=== PATIENT | male | born 1940 | race Caucasian/White ===

== ENCOUNTER 2016-07-04 09:43 | Observation (INO) | payer MEDICARE ==
[2016-07-04] MEDS ORDERED: Sodium Chloride 0.9% 1000 ML 1,000 ML IV STA (10:22)
--- NOTE | 2016-07-04 10:22 | ERPHSYRPT ---
- History of Present Illness Time Seen by Provider: 07/04/16 10:17 Source: patient, EMS Exam Limitations: other (dementia) Patient Subjective Stated Complaint: syncopal episode per skilled nursing Triage Nursing Assessment: per ems, pt was in shower and had a 2 min syncopal episode. on arrival, pt pleasant and oriented to year, confused to place and time. skin jaundice. cap refil >3 seconds with cyanoic kneecaps and elbows. oral membranes dry. machine buffer weak. lungs clear. abd flat, bs present. moist weak cough noted Physician History: The patient is a 75-year-old male with Alzheimer's who resides in a skilled nursing brought in by ambulance today after passing out in the shower and being unconscious for 2 minutes. Patient does not remember any of the incident. He is mildly confused. He states he doesn't know why he is in the skilled nursing except that the sports complex attendant ordered. He denies pain anywhere at this time. He has past medical history of pneumonia, COPD, sepsis, UTI, prostate problems, and Alzheimer's dementia. Witnessed: other (longterm nurse) Prior Episodes: single episode today Timing/Duration: sudden, improved Precipitating Factors: none Context: standing Loss of Consciousness: prolonged (minutes) (2) Charcter of event(s): collapsed, became unresponsive Allergies/Adverse Reactions: No Known Drug Allergies Allergy (Verified 07/04/16 10:04) Home Medications: Aspirin [Tammy Aspirin] 81 mg PO DAILY 04/16/13 [History] Acetaminophen 325 mg [Tylenol 325 mg] 650 mg PO Q4H PRN PRN 07/02/13 [ History] Albuterol 2.5 mg/3 ml Neb [Proventil 2.5 mg/3 ml Neb] 2.5 mg IH Q6H PRN PRN 07/02/13 [History] Finasteride 5 mg [Proscar 5 MG] 5 mg DAILY 12/04/15 [History] Loratadine 10 mg [Claritin 10 mg] 10 mg DAILY 12/04/15 [History] Memantine HCl/Donepezil HCl [Namzaric 28 mg-10 mg Capsule] 1 ea PO DAILY [History] Quetiapine Fumarate 25 mg [Seroquel 25 MG] 50 mg PO QHS 12/04/15 [History] Sennosides [Senna Laxative] 8.6 mg PO DAILY 12/04/15 [History] Tamsulosin HCl [Flomax] 0.4 mg PO DAILY 12/04/15 [History] Tramadol HCl 50 mg [Ultram 50 mg] 50 mg PO Q4HPRN PRN 12/04/15 [History] Hx Tetanus, Diphtheria Vaccination/Date Given: Yes Hx Influenza Vaccination/Date Given: (unknown) Hx Pneumococcal Vaccination/Date Given: (unknown) - Past Medical History Pertinent Past Medical History: Yes Neurological History: No Pertinent History, Alzheimer's Disease, Dementia, TIA ENT History: No Pertinent History, Other Cardiac History: Arrhythmia, High Cholesterol, Hypertension, Peripheral Vascular Disease, Other Respiratory History: COPD, Emphysema Endocrine Medical History: No Pertinent History Musculoskeletal History: No Pertinent History GI Medical History: No Pertinent History History: No Pertinent History Psycho-Social History: No Pertinent History Male Reproductive Disorders: No Pertinent History Other Medical History: POOR HISTORIAN FOR PAST MEDICAL HISTORY. HISTORY OF ANEURYSM, BRADYCARDIA, CRANIOTOMY WITH LEFT MCA/CAESAR - Past Surgical History Past Surgical History: Yes Neuro Surgical History: Other Cardiac: No Pertinent History Respiratory: No Pertinent History Gastrointestinal: No Pertinent History Genitourinary: No Pertinent History Musculoskeletal: No Pertinent History Male Surgical History: No Pertinent History Other Surgical History: Cerebral Aneurysm. DETACHED RETINAL REPAIR. CRANIOTOMY WITH LEFT MCA/CAESAR - Social History Smoking Status: Former smoker How long have you smoked: 50 Exposure to second hand smoke: No Drug Use: none Patient Lives Alone: No - Review of Systems Constitutional: No Fever, No Chills Eyes: Other (scleral icterus) Ears, Nose, & Throat: Other (dry mucous membranes) Respiratory: No Cough, No Dyspnea Cardiac: No Chest Pain, No Edema, No Syncope Abdominal/Gastrointestinal: No Abdominal Pain, No Nausea, No Vomiting, No Diarrhea Genitourinary Symptoms: No Dysuria Musculoskeletal: No Back Pain, No Neck Pain Skin: No Rash Neurological: Other (dementia) Psychological: Memory Loss Endocrine: No Symptoms Hematologic/Lymphatic: No Symptoms Immunological/Allergic: No Symptoms All Other Systems: Reviewed and Negative Physical Exam - Nursing Vital Signs Nursing Vital Signs: Initial Vital Signs Temperature 96.9 F Temperature Source Rectal Pulse Rate 70 Respiratory Rate 18 Blood Pressure 115/57 Pain Intensity 0 - Maggie Coma Scale Best Eye Response ([place]): (4) open spontaneously Best Verbal Response (Maggie): (5) oriented Best Motor Response (Maggie): (6) obeys commands Maggie Total: 15 - Physical Exam General Appearance: mild distress Eye Exam: bilateral eye: other (scleral icterus) Ears, Nose, Throat Exam: dry mucous membranes Neck Exam: normal inspection, non-tender, supple, full range of motion Respiratory: rhonchi Cardiovascular: regular rate/rhythm, capillary refill <2 sec, No murmur, No pulse deficit Gastrointestinal: soft, No tenderness, No distention, No mass Rectal Exam: not done Back Exam: normal inspection, normal range of motion, No CVA tenderness, No vertebral tenderness Extremity Exam: normal inspection, normal range of motion, pelvis stable, No tenderness Mental Status: alert, oriented x 3, 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 comp Chest CT 02/03/16. Right lung now clear.) Ordered Tests: Active Orders 24 hr Category Date Time Status Search Strategist STAT Care 07/04/16 10:22 Active Cath for Specimen-Straight STAT Care 07/04/16 10:22 Active EKG-ER Only STAT Care 07/04/16 10:22 Active IV Insertion STAT Care 07/04/16 10:22 Active Orthostatic Vital Signs STAT Care 07/04/16 10:22 Active Oxygen-ED Only NASAL CANNULA 2 lpm Care 07/04/16 10:22 Active CHEST 2 VIEWS (PA AND LAT) Stat Exams 07/04/16 10:23 Completed AMYLASE Stat Lab 07/04/16 10:00 Completed BLOOD CULTURE Stat Lab 07/04/16 10:34 Received CBC W DIFF Stat Lab 07/04/16 10:00 Completed CMP Stat Lab 07/04/16 10:00 Completed LIPASE Stat Lab 07/04/16 10:00 Completed Lactic Acid Stat Lab 07/04/16 10:37 Completed Occult Blood,Stool Other Stat Lab 07/04/16 10:58 Completed TROPONIN Stat Lab 07/04/16 10:00 Completed UA W/ MICROSCOPIC Stat Lab 07/04/16 10:30 Completed VENOUS BLOOD GAS Stat Lab 07/04/16 10:37 Completed Medication Summary Discontinued Medications Generic Name Dose Route Start Last Admin Trade Name Marbin PRN Reason Stop Dose Admin Sodium Chloride 1,000 mls @ 999 mls/hr 07/04/16 10:22 07/04/16 11:25 Sodium Chloride 0.9% 1000 Ml IV 07/04/16 11:22 999 mls/hr .Q1H1M STA Administration Sodium Chloride Confirm 07/04/16 11:08 Sodium Chloride 0.9% 1000 Ml Administered 07/04/16 11:09 Dose 1,000 mls @ ud .ROUTE .STK-MED ONE Lab/Rad Data: Laboratory Result Diagrams 07/04/16 10:00 07/04/16 10:00 Laboratory Results 07/04/16 07/04/16 07/04/16 Range/Units 10:58 10:37 10:30 WBC (4.0-10.5) K/mm3 RBC (4.1-5.6) M/mm3 Hgb (12.5-18.0) gm/dl Hct (42-50) % MCV (78-100) fl MCH (26-32) pg MCHC (32-36) g/dl RDW (11.5-14.0) % Plt Count (150-450) K/mm3 MPV (6-9.5) fl Gran % (36.0-66.0) % Lymphocytes % (24.0-44.0) % Monocytes % (0.0-12.0) % Eosinophils % (0.00-5.0) % Basophils % (0.0-0.4) % Basophils # (0-0.4) VBG pH 7.39 (7.32-7.42) VBG pCO2 at Pat Temp 47 (42-55) mm/Hg VBG pO2 at Pat Temp 21 L (25-40) mm/Hg VBG HCO3 28.5 H (22-28) meq/L VBG O2 Sat (Porfirio) 27.7 L (95-100) VBG Base Excess 3.2 H (-2.0-2.0) VBG Hemoglobin 6.6 L* VBG Carboxyhemoglobin 4.6 (0.0-6.9) % T HGB POC Potassium 4.0 (3.5-5.1) Sodium (136-145) mEq/L Potassium (3.5-5.1) mEq/L Chloride (98-107) mEq/L Carbon Dioxide (21-32) mEq/L Anion Gap (5-15) MEQ/L BUN (9-20) mg/dL Creatinine (0.55-1.30) mg/dl Estimated GFR ML/MIN Glucose (70-110) MG/DL Lactic Acid 2.4 H (0.4-2.0) Calcium (8.5-10.1) mg/dL Total Bilirubin (0.2-1.0) mg/dL AST (15-37) U/L ALT (12-78) U/L Alkaline Phosphatase (46-116) U/L Troponin I (0.000-0.056) ng/ml Serum Total Protein (6.4-8.2) gm/dL Albumin (3.4-5.0) g/dL Amylase (25-115) U/L Lipase (73-393) U/L Ur Collection Type VOID Urine Color [place] (YELLOW) Urine Appearance CLEAR (CLEAR) Urine pH 5.0 (5-6) Ur Specific [place] >=1.030 (1.005-1.025) Urine Protein 100 (Negative) Urine Glucose (UA) NEGATIVE (NEGATIVE) mg/dL Urine Ketones NEGATIVE (NEGATIVE) Urine Nitrite NEGATIVE (NEGATIVE) Urine Bilirubin SMALL (NEGATIVE) Urine Urobilinogen 0.2 (0-1) mg/dL Urine WBC (Auto) NEGATIVE (NEGATIVE) Urine RBC (Auto) TRACE-INTACT (0-5) James/ul Urine Microscopic RBC 2-5 (0-2) /HPF Urine Microscopic WBC 0-2 (0-5) /HPF Ur Epithelial Cells FEW (FEW) /HPF Urine Bacteria FEW (NEGATIVE) /HPF Urine Mucus MODERATE (NEGATIVE) /HPF Stool Occult Blood NEGATIVE (Negative) Slides for Path Review Specimen Received 07/04/16 1030 07/04/16 07/04/16 07/04/16 Range/Units 10:00 10:00 10:00 WBC 9.8 (4.0-10.5) K/mm3 RBC 1.99 L (4.1-5.6) M/mm3 Hgb 6.0 L* (12.5-18.0) gm/dl Hct 20.1 L (42-50) % MCV 101.0 H (78-100) fl MCH 30.1 (26-32) pg MCHC 29.9 L (32-36) g/dl RDW 25.0 H (11.5-14.0) % Plt Count 464 H (150-450) K/mm3 MPV 8.3 (6-9.5) fl Gran % 75.1 H (36.0-66.0) % Lymphocytes % 15.3 L (24.0-44.0) % Monocytes % 6.0 (0.0-12.0) % Eosinophils % 3.3 (0.00-5.0) % Basophils % 0.3 (0.0-0.4) % Basophils # 0.03 (0-0.4) VBG pH (7.32-7.42) VBG pCO2 at Pat Temp (42-55) mm/Hg VBG pO2 at Pat Temp (25-40) mm/Hg VBG HCO3 (22-28) meq/L VBG O2 Sat (Porfirio) (95-100) VBG Base Excess (-2.0-2.0) VBG Hemoglobin VBG Carboxyhemoglobin (0.0-6.9) % T HGB POC Potassium (3.5-5.1) Sodium 146 H (136-145) mEq/L Potassium 3.9 (3.5-5.1) mEq/L Chloride 110 H (98-107) mEq/L Carbon Dioxide 26.8 (21-32) mEq/L Anion Gap 13.3 (5-15) MEQ/L BUN 33 H (9-20) mg/dL Creatinine 1.46 H (0.55-1.30) mg/dl Estimated GFR 50 ML/MIN Glucose 127 H (70-110) MG/DL Lactic Acid (0.4-2.0) Calcium 8.9 (8.5-10.1) mg/dL Total Bilirubin 2.0 H (0.2-1.0) mg/dL AST 19 (15-37) U/L ALT 8 L (12-78) U/L Alkaline Phosphatase 55 (46-116) U/L Troponin I < 0.017 (0.000-0.056) ng/ml Serum Total Protein 8.0 (6.4-8.2) gm/dL Albumin 2.7 L (3.4-5.0) g/dL Amylase 29 (25-115) U/L Lipase 127 (73-393) U/L Ur Collection Type Urine Color (YELLOW) Urine Appearance (CLEAR) Urine pH (5-6) Ur Specific [place] (1.005-1.025) Urine Protein (Negative) Urine Glucose (UA) (NEGATIVE) mg/dL Urine Ketones (NEGATIVE) Urine Nitrite (NEGATIVE) Urine Bilirubin (NEGATIVE) Urine Urobilinogen (0-1) mg/dL Urine WBC (Auto) (NEGATIVE) Urine RBC (Auto) (0-5) James/ul Urine Microscopic RBC (0-2) /HPF Urine Microscopic WBC (0-5) /HPF Ur Epithelial Cells (FEW) /HPF Urine Bacteria (NEGATIVE) /HPF Urine Mucus (NEGATIVE) /HPF Stool Occult Blood (Negative) Slides for Path Review YES Specimen Received - Progress Progress: improved Discussed with : Jerson (Dr Arthur accepts pt for Dr Finn Johnson) Will see patient in: hospital (observation) Counseled pt/family regarding: lab results, diagnosis, rad results - Departure Time of Disposition: 12:32 Departure Disposition: Observation (Per Dr Arthur) Clinical Impression: Anemia, Atelectasis of left lung Condition: Fair Critical Care Time: No
[2016-07-04 10:40] LABS: BASOPHIL % 0.3 % (0.0-0.4); Eosinophil % 3.3 % (0.00-5.0); Granulocytes % 75.1 % (36.0-66.0); Lymphocytes % 15.3 % (24.0-44.0); Mean Platelet Volume 8.3 fl (6-9.5); Platelet Count 464 K/mm3 (150-450); Red Blood Count 1.99 M/mm3 (4.1-5.6); White Blood Count 9.8 K/mm3 (4.0-10.5)
[2016-07-04 10:41] LABS: Lactic Acid 2.4 (0.4-2.0); VBG BASE EXCESS 3.2 (-2.0-2.0); VBG CARBOXYHEMOGLOBIN 4.6 % T HGB (0.0-6.9); VBG HCO3- 28.5 meq/L (22-28); VBG O2 SATURATION 27.7 (95-100); VBG pH 7.39 (7.32-7.42)
[2016-07-04 10:42] LABS: VBG HEMOGLOBIN 6.6
[2016-07-04 10:42] LABS: COMPLETE URINE MICROSCOPIC? YES; Collection Type VOID
[2016-07-04 10:44] LABS: ALBUMIN 2.7 g/dL (3.4-5.0); ANION GAP 13.3 MEQ/L (5-15); Carbon Dioxide 26.8 mEq/L (21-32); Potassium 3.9 mEq/L (3.5-5.1)
[2016-07-04 10:47] LABS: LIPASE 127 U/L (73-393); Mean Corpuscular Hemoglobin 30.1 pg (26-32)
[2016-07-04 10:50] LABS: TROPONIN < 0.017 ng/ml (0.000-0.056)
[2016-07-04 10:57] LABS: Bacteria FEW /HPF (NEGATIVE); Epithelial Cells FEW /HPF (FEW); Mucus MODERATE /HPF (NEGATIVE); WBC 0-2 /HPF (0-5)
--- NOTE | 2016-07-04 11:04 | XRAY ---
Indication: Cough and syncope. Comparison: December 04, 2015 Portable chest demonstrates stable near complete opacification of the left lung with volume loss and shift of the heart/mediastinal structures favoring atelectasis. Underlying mass not excluded. There is cut off of the left mainstem bronchus confirmed on CT chest study of December 04, 2015. Right lung is now clear. Heart is not enlarged. Stable left hilar calcified nodes. Bony thorax intact. Impression: Stable left lung atelectasis presumed secondary to mainstem bronchus occlusion as seen on CT chest study. No new cardiopulmonary abnormalities.
[2016-07-04] MEDS ORDERED: Sodium Chloride 0.9% 1000 ML 1,000 ML ONE (11:08)
[2016-07-04] MEDS ORDERED: TYLENOL 325 MG PO PRN ×2 (13:09→16:03)
[2016-07-04] MEDS ORDERED: PROVENTIL 2.5 MG/3 ML NEB IH PRN (13:54)
[2016-07-04] MEDS: Sodium Chloride 0.9% 1000 ML 1,000 ML IV SCH (15:14)
[2016-07-04] MEDS ORDERED: DEXTROMETHORPHAN PO PRN (16:03)
[2016-07-04] MEDS ORDERED: GUAIFENESIN PO PRN (16:03)
[2016-07-04] MEDS ORDERED: ULTRAM 50 MG PO PRN (16:03)
[2016-07-04] MEDS ORDERED: Robitussin-Dm Syrup PO PRN (16:11)
[2016-07-04] MEDS: Namenda 5 MG PO SCH (21:45)
[2016-07-04] MEDS ORDERED: Seroquel 25 MG PO SCH (22:00)
[2016-07-05] MEDS: Sodium Chloride 0.9% 1000 ML 1,000 ML IV SCH ×2 (01:14→11:45)
[2016-07-05 05:37] LABS: Mean Cell Volume 100.6 fl (78-100); Mean Platelet Volume 8.2 fl (6-9.5); Platelet Count 349 K/mm3 (150-450); Red Cell Distribution Width 25.2 % (11.5-14.0); White Blood Count 6.7 K/mm3 (4.0-10.5)
[2016-07-05 05:50] LABS: Mean Corpuscular Hemoglobin 29.1 pg (26-32); Red Blood Count 1.61 M/mm3 (4.1-5.6)
[2016-07-05 06:01] LABS: ANISOCYTOSIS 2+; Eosinophil 11 % (0.00-3.0); Poikilocytosis 1+; Total Cells Counted 100
[2016-07-05 06:02] LABS: Platelet Estimate NORMAL (NORMAL)
[2016-07-05 06:10] LABS: ANION GAP 10.9 MEQ/L (5-15); BLOOD UREA NITROGEN 28 mg/dL (9-20); CHLORIDE 112 mEq/L (98-107); Glucose 88 MG/DL (70-110); Potassium 3.9 mEq/L (3.5-5.1); SODIUM 145 mEq/L (136-145); TROPONIN 0.018 ng/ml (0.000-0.056)
[2016-07-05] MEDS ORDERED: BENADRYL 50 MG/ML IV ONE (07:56)
[2016-07-05] MEDS ORDERED: solu-MEDROL 125 MG IV ONE (07:56)
[2016-07-05] MEDS ORDERED: Aricept 10 MG PO SCH (10:00)
[2016-07-05] MEDS ORDERED: CLARITIN 10 MG PO SCH (10:00)
[2016-07-05] MEDS ORDERED: MEMANTINE HCL PO SCH (10:00)
[2016-07-05] MEDS ORDERED: Flomax 0.4 MG PO SCH (10:00)
[2016-07-05] MEDS ORDERED: SENOKOT 8.6 MG PO SCH (10:00)
[2016-07-05] MEDS ORDERED: DONEPEZIL HCL PO SCH (10:00)
[2016-07-05] MEDS ORDERED: Proscar 5 MG PO SCH (10:00)
[2016-07-05] MEDS ORDERED: ASPIRIN 81 MG PO SCH (10:00)
[2016-07-05] MEDS ORDERED: ROCEPHIN 1 Gm-D5w 50 ml Bag** 50 ML IV SCH (10:00)
[2016-07-05] MEDS ORDERED: ECOTRIN 81 MG PO SCH (10:00)
[2016-07-05] MEDS: Namenda 5 MG PO SCH (11:48)
--- NOTE | 2016-07-05 16:10 | PCM.DCORD ---
- Discharge Discharge Date: 07/05/16 Disposition: DC TO [facility] Condition: Poor Medications: Home Medications Aspirin [Tammy Aspirin] 81 mg PO DAILY 04/16/13 [Confirmed 07/04/16] Acetaminophen 325 mg [Tylenol 325 mg] 650 mg PO Q4H PRN PRN 07/02/13 [ Confirmed 07/04/16] Albuterol 2.5 mg/3 ml Neb [Proventil 2.5 mg/3 ml Neb] 2.5 mg IH Q6H PRN PRN 07/02/13 [Confirmed 07/04/16] Finasteride 5 mg [Proscar 5 MG] 5 mg DAILY 12/04/15 [Confirmed 07/04/16] Loratadine 10 mg [Claritin 10 mg] 10 mg DAILY 12/04/15 [Confirmed 07/04/16 ] Memantine HCl/Donepezil HCl [Namzaric 28 mg-10 mg Capsule] 1 ea PO DAILY [Confirmed 07/04/16] Quetiapine Fumarate 25 mg [Seroquel 25 MG] 50 mg PO QHS 12/04/15 [ Confirmed 07/04/16] Sennosides [Senna Laxative] 8.6 mg PO DAILY 12/04/15 [Confirmed 07/04/16] Tamsulosin HCl [Flomax] 0.4 mg PO DAILY 12/04/15 [Confirmed 07/04/16] Tramadol HCl 50 mg [Ultram 50 mg] 50 mg PO Q4HPRN PRN 12/04/15 [Confirmed 07/04/16] Guaifenesin/Dextromethorphan [Sm Tussin Dm Max Liquid] 10 ml PO Q4H PRN PRN 11/13 [Confirmed 07/04/16] Magnesium Hydroxide 30 ml [Milk of Magnesia 30 ml] 30 ml PO DAILY PRN PRN 07/04/16 [Confirmed 07/04/16] Active Inpatient Medications Acetaminophen (Tylenol 325 Mg) 650 mg PO Q4H PRN PRN PRN Reason: PAIN AND/OR FEVER Stop: 08/03/16 13:08 Acetaminophen (Tylenol 325 Mg) 650 mg PO Q4H PRN PRN PRN Reason: MILD PAIN Stop: 08/03/16 16:02 Albuterol Sulfate (Proventil 2.5 Mg/3 Ml Neb) 2.5 mg IH Q6H PRN PRN PRN Reason: SHORTNESS OF BREATH/WHEEZING Stop: 08/03/16 13:53 Aspirin (Ecotrin 81 Mg) 81 mg PO DAILY [facility] Stop: 08/04/16 09:59 Last Admin: 07/05/16 11:48 Dose: 81 mg Donepezil HCl (Aricept 10 Mg) 10 mg PO DAILY [facility] Stop: 08/04/16 09:59 Last Admin: 07/05/16 11:48 Dose: 10 mg Finasteride (Proscar 5 Mg) 5 mg PO DAILY [facility] Stop: 08/04/16 09:59 Last Admin: 07/05/16 11:49 Dose: 5 mg Guaifenesin/Dextromethorphan (Robitussin-Dm Syrup) 10 ml PO Q4H PRN PRN PRN Reason: COUGH Stop: 08/03/16 16:10 Ceftriaxone Sodium/Dextrose (Rocephin 1 Gm-D5w 50 Ml Bag) 50 mls @ 100 mls/ hr IV Q24H10 [facility] Stop: 08/04/16 09:59 Last Admin: 07/05/16 11:53 Dose: 100 mls/hr Sodium Chloride (Sodium Chloride 0.9% 1000 Ml) 1,000 mls @ 100 mls/hr IV .Q10H [facility] Stop: 08/03/16 13:08 Last Admin: 07/05/16 11:45 Dose: 100 mls/hr Loratadine (Claritin 10 Mg) 10 mg PO DAILY [facility] Stop: 08/04/16 09:59 Last Admin: 07/05/16 11:48 Dose: 10 mg Memantine (Namenda 5 Mg) 10 mg PO BID [facility] Stop: 08/03/16 21:59 Last Admin: 07/05/16 11:48 Dose: 10 mg Quetiapine Fumarate (Seroquel 25 Mg) 50 mg PO QHS [facility] Stop: 08/03/16 21:59 Last Admin: 07/04/16 21:44 Dose: 50 mg Senna (Senokot 8.6 Mg) 8.6 mg PO DAILY [facility] Stop: 08/04/16 09:59 Last Admin: 07/05/16 11:48 Dose: 8.6 mg Tamsulosin HCl (Flomax 0.4 Mg) 0.4 mg PO DAILY [facility] Stop: 08/04/16 09:59 Last Admin: 07/05/16 11:48 Dose: 0.4 mg Tramadol HCl (Ultram 50 Mg) 50 mg PO Q4HPRN PRN PRN Reason: PAIN Stop: 08/03/16 16:02 Additional Instructions: Hospice Services evaluation upon discharge. Follow up with: SHAW CLAUDIO [Primary Care Provider] -
[2016-07-05 16:15] VITALS: BP 101/56; PULSE 56; O2SAT 90
[2016-07-08 13:55] LABS: AB ID Interp Autoantibody
--- NOTE | 2016-07-09 10:20 | SSS ---
DISCHARGE DIAGNOSIS: 1. PROFOUND ANEMIA. 2. CHEST MASS, ETIOLOGY UNDETERMINED. 3. CHRONIC OBSTRUCTIVE PULMONARY DISEASE. 4. DEMENTIA. HISTORY OF PRESENT ILLNESS: Patient is a 75 y/o WM patient of a local fpc who was brought in to the hospital having passed out in the shower. He was unconscious for approximately 2 minutes. On evaluation in the Emergency Room, the patient was found to be profoundly anemic with Hgb below 7. The patient was admitted to the hospital for further evaluation and management. PAST MEDICAL HISTORY: The patient's past medical history is significant for the above medical problems. He is unable to provide an accurate history. He also apparently has problems with previous transient ischemic attack, arrhythmias, hyperlipidemia, hypertension, and peripheral vascular disease. He has previously had a craniotomy for history of aneurysm. He has had detached retina repaired. HOME MEDICATIONS: His medications at the fpc include aspirin 81 mg a day, Tylenol, albuterol, finasteride 5 mg a day, loratadine 10 mg a day, Namzaric 28/10 daily, Seroquel 25 mg 2 tablets at night, Senna laxative, Tamsulosin 0.4 mg daily, tramadol 50 mg a day. ALLERGIES: THERE ARE NKDA REPORTED. PHYSICAL EXAMINATION: Reveals a frail, elderly WM appearing older than his stated age of 75. VITAL SIGNS: His vital signs on admission showed a temperature of 96.9 rectal, pulse 71, respiratory rate 22, BP 92/48. HEENT: Normocephalic and atraumatic. Pupils equal, round, and reactive to light. He is wearing O2 via nasal cannula. Oropharynx was somewhat dry. NECK: Supple without lymphadenopathy, thyromegaly, or JVD. CHEST: Clear to auscultation with good air movement bilaterally. HEART: Regular rate and rhythm without murmurs, rubs, or gallops. ABDOMEN: Soft, nontender, nondistended without hepatosplenomegaly or masses. EXTREMITIES: Without cyanosis, clubbing, or edema. NEURO: The patient is somewhat lethargic, but does open his eyes and tries to respond verbally to questions. LABORATORY DATA: The patient's laboratory studies yield a WBC of 6700, Hgb 4.7, platelet count 349,000. Metabolic panel - Nonfasting sugar 334, BUN 16, creatinine 0.92. His electrolytes were normal. Liver enzymes were normal. He is A+ on his blood type with a positive antibody screen. HOSPITAL COURSE: The patient was admitted to the Intensive Care Unit for close monitoring. We tried all night to obtain blood. Apparently, they could not find any blood that was not highly reactive. After discussion with the family, due to the problems with the reactivity of his blood, we felt it prudent to go ahead and give him the blood, but pretreat him with Solu-Medrol, Benadryl, and Tylenol. However, the family decided that they did not want to be aggressive with him and they were okay with him dwindling away. We therefore canceled the orders for blood. He has been felt to be stable medically otherwise at this time and with no management to offer him otherwise, we are going to transfer her back to the fpc with him anticipating that he will not survive much longer if he continues to drop down on his blood count obviously. He is a candidate for Hospice Care and we discussed this with the family. We are transferring him back to the fpc at this time on his usual home medications as noted above in the H&P.
[2016-07-11 08:10] LABS: COA AG Positive (Negative); COB AG Negative (Negative); C_AG Positive (Negative); DIA AG Negative (Negative); DIB AG Positive (Negative); DOA AG Negative (Negative); DOB AG Positive (Negative); E_AG Negative (Negative); FYA AG Negative (Negative); FYB AG Positive (Negative); HBS AG Negative (Negative); HY AG Positive (Negative); JKA AG Positive (Negative); JKB AG Positive (Negative); JOA AG Positive (Negative); JSA AG Negative (Negative); JSB AG Positive (Negative); KPA AG Negative (Negative); KPB AG Positive (Negative); K_AG Negative (Negative); LUA AG Negative (Negative); LUB AG Positive (Negative); LWA AG Positive (Negative); LWB AG Negative (Negative); M AG Positive (Negative); N AG Positive (Negative); SC1 AG Positive (Negative); SC2 AG Negative (Negative); S_AG Positive (Negative); U AG Positive (Negative); V AG Negative (Negative); VS AG Negative (Negative); c AG Positive (Negative); e AG Positive (Negative); k AG Positive (Negative); s AG Positive (Negative)
[2016-07-12 05:09] LABS: COA AG SEE SEPARATE REPORT; COB AG SEE SEPARATE REPORT; C_AG SEE SEPARATE REPORT; DIA AG SEE SEPARATE REPORT; DIB AG SEE SEPARATE REPORT; DOA AG SEE SEPARATE REPORT; DOB AG SEE SEPARATE REPORT; E_AG SEE SEPARATE REPORT; FYA AG SEE SEPARATE REPORT; FYB AG SEE SEPARATE REPORT; HBS AG SEE SEPARATE REPORT; HY AG SEE SEPARATE REPORT; JKA AG SEE SEPARATE REPORT; JKB AG SEE SEPARATE REPORT; JOA AG SEE SEPARATE REPORT; JSA AG SEE SEPARATE REPORT; JSB AG SEE SEPARATE REPORT; KPA AG SEE SEPARATE REPORT; KPB AG SEE SEPARATE REPORT; K_AG SEE SEPARATE REPORT; LUA AG SEE SEPARATE REPORT; LUB AG SEE SEPARATE REPORT; LWA AG SEE SEPARATE REPORT; LWB AG SEE SEPARATE REPORT; M AG SEE SEPARATE REPORT; N AG SEE SEPARATE REPORT; SC1 AG SEE SEPARATE REPORT; SC2 AG SEE SEPARATE REPORT; S_AG SEE SEPARATE REPORT; U AG SEE SEPARATE REPORT; V AG SEE SEPARATE REPORT; VS AG SEE SEPARATE REPORT; c AG SEE SEPARATE REPORT; e AG SEE SEPARATE REPORT; k AG SEE SEPARATE REPORT; s AG SEE SEPARATE REPORT
[2016-07-12 05:10] LABS: COA AG SEE SEPARATE REPORT; COB AG SEE SEPARATE REPORT; C_AG SEE SEPARATE REPORT; DIA AG SEE SEPARATE REPORT; DIB AG SEE SEPARATE REPORT; DOA AG SEE SEPARATE REPORT; DOB AG SEE SEPARATE REPORT; E_AG SEE SEPARATE REPORT; FYA AG SEE SEPARATE REPORT; FYB AG SEE SEPARATE REPORT; HBS AG SEE SEPARATE REPORT; HY AG SEE SEPARATE REPORT; JKA AG SEE SEPARATE REPORT; JKB AG SEE SEPARATE REPORT; JOA AG SEE SEPARATE REPORT; JSA AG SEE SEPARATE REPORT; JSB AG SEE SEPARATE REPORT; KPA AG SEE SEPARATE REPORT; KPB AG SEE SEPARATE REPORT; K_AG SEE SEPARATE REPORT; LUA AG SEE SEPARATE REPORT; LUB AG SEE SEPARATE REPORT; LWA AG SEE SEPARATE REPORT; LWB AG SEE SEPARATE REPORT; M AG SEE SEPARATE REPORT; N AG SEE SEPARATE REPORT; SC1 AG SEE SEPARATE REPORT; SC2 AG SEE SEPARATE REPORT; S_AG SEE SEPARATE REPORT; U AG SEE SEPARATE REPORT; V AG SEE SEPARATE REPORT; VS AG SEE SEPARATE REPORT; c AG SEE SEPARATE REPORT; e AG SEE SEPARATE REPORT; k AG SEE SEPARATE REPORT; s AG SEE SEPARATE REPORT
== END 2016-07-05 19:00 | disposition home or self-care (01) ==
LOC: ED 09:43 → MED SURG 13:00 → UNDOADMOB 13:00 → INTOOBSV 07-05 07:30 → OBSVTOIN 07-05 07:30 → MED SURG 07-05 07:52 → ICU 07-05 07:52 → MED SURG 07-05 13:08
PROVIDERS: ADMIT Family Medicine; ATTEND Family Medicine
DX: D64.9 Anemia, unspecified (principal); R22.2 Localized swelling, mass and lump, trunk; J44.9 Chronic obstructive pulmonary disease, unspecified; F03.90 Unspecified dementia, unspecified severity, without behavioral disturbance, psychotic disturbance, mood disturbance, and anxiety; E78.5 Hyperlipidemia, unspecified; I10 Essential (primary) hypertension; I73.9 Peripheral vascular disease, unspecified; Z79.899 Other long term (current) drug therapy
CPT/HCPCS: 93041; 99284; 96360; 93005; 87040; 82150; 81000; 36415 ×2; 82272; 83690; 85025 ×2; 80048; 80053; 84484 ×2; 86870; 86850; 86900; 86901; 86922; 71020; 82805; 94760 ×2; 83605; P9612; G0378; J0696